=== PATIENT | female | born 1960 | race Caucasian/White ===

== ENCOUNTER 2017-04-26 09:45 | Emergency (ER) | payer BC, OTHER ==
[2017-04-26 09:55] VITALS: BP 128/70; BMI 49.4
--- NOTE | 2017-04-26 10:33 | DR.GENAD ---
HPI - PCP Primary Care Physician: Rebel - Complaint/Symptoms Chief Complaint:: "About 2 weeks ago my legs got red. A little bit later I had a sore come up on them. Dr. Luque give me some medicine to take and also gave me a shot. I have been taking meds for about a week now and they are still swelling really bad to the point where it hurts when I walk." - Source History Provided: Patient - Mode of Arrival Mode of Arrival: Wheelchair - Timing Onset of Chief Complaint: 04/12/17 PMH - PMH Past Medical History: Yes Past Medical History: COPD, CVA, Diabetes, Hypertension, Seizures Past Surgical History: Yes Surgical History: Cholecystectomy, Ortho Surgery - Family History History of Family Medical Conditions: Yes Family Medical History: Diabetes Mellitus, Cancer, [place], Hypertension - Social History Does patient currently use any type of tobacco product: Yes Have you used tobacco products in the last 12 months: Yes Type of Tobacco Use: Cigarettes Does any household member use tobacco: No Alcohol Use: None Do you use any recreational Drugs:: No Lives With: Family Lives Where: Home - infectious screening In the last 2 months have you had wt loss of >10#?: NO Have you had fever, night sweats or hemotysis?: No Have you traveled outside the country in the last 6 months?: No Isolation: Standard ROS - Review of Systems Eyes: No Symptoms Reported ENTM: No Symptoms Reported Respiratoy: No Symptoms Reported Cardiovascular: No Symptoms Reported Gastrointestinal/Abdominal: No Symptoms Reported Genitourinary: No Symptoms Reported Neurological: No Symptoms Reported Musculoskeletal: No Symptoms Reported Integumentary: No Symptoms Reported Hematologic/Lymphatic: Other (lymphedema) Endocrine: No Symptoms Reported Psychiatric: No Symptoms Reported All Other Systems: Reviewed and Negative PE - Vital Signs Vitals: Temperature 98.3 F Pulse Rate 78 Respiratory Rate 18 Blood Pressure 128/70 O2 Sat by Pulse Oximetry 94 - General General Appearance: Alert - Head Head Exam: Normal Inspection, Atraumatic - Eyes Eye exam: Normal Appearance, PERRL, EOMI - ENT ENT Exam: Normal Exam External Ear Exam: Normal External Inspection TM/Canal Exam: Bilateral Normal Nose Exam: Normal Nose Exam Mouth Exam: Normal Inspection Throat Exam: Normal Inspection - Neck Neck Exam: Normal Inspection - Respiratory Respiratory Exam: Normal Lung Sounds Bilat Respiratory Exam: Bilateral Clear to Auscultation - Cardiovascular Cardiovascular Exam: Regular Rate - Abdominal Exam Abdominal Exam: Normal Inspection Abdominal Tenderness: negative: RUQ, RLQ, LUQ, LLQ, Epigastrium, Suprapubic, Diffuse, Mild, Moderate, Severe, Other - Extremities Extremities Exam: Edema (bilaterally lower extremities) - Back Back Exam: Normal Inspection - Neurologic Neurological Exam: Alert, Oriented X3, CN II-XII Intact - Psychiatric Psychiatric Exam: Normal Affect - Skin Skin Exam: Warm, Dry, Intact - Diagnosis Discharge Problem: Lymph edema - Discharge Plan Condition: Stable - Follow ups/Referrals Follow ups/Referrals: Cecil Luque [Primary Care Provider] - 3 days - Instructions
== END 2017-04-26 10:51 | disposition home or self-care (01) ==
LOC: ER 10:04
DX: I89.0 Lymphedema, not elsewhere classified (principal)
CPT/HCPCS: 99281; 99282

== ENCOUNTER → 2017-06-06 | Outpatient (CLI) | payer BC | LOC: RAD 15:11 | PROVIDERS: ATTEND Internal Medicine | DX: M25.552 Pain in left hip (principal) ==